=== PATIENT | male | born 1990 | race Caucasian/White ===

== ENCOUNTER 2017-08-21 17:44 | Emergency (ER) | payer OTHER ==
--- NOTE | 2017-08-21 17:57 | ER Document Report ---
ED Medical Screen (RME) - General Stated Complaint: RIGHT HAND INJURY Time Seen by Provider: 08/21/17 17:57 Mode of Arrival: Ambulatory Information source: Patient Notes: Patient states he cut his thumb with a table saw. He states he feels lightheaded and dizzy. He is also very thirsty.
[2017-08-21] MEDS ORDERED: DIPH/PERTUSS(ACELL)/TETANUS VAC/PF 0.5 ML SYR (>=10YO) IM ONE (18:24)
--- NOTE | 2017-08-21 18:42 | RADIOLOGY REPORT (SQ) ---
EXAM DESCRIPTION: HAND RIGHT 3 VIEWS COMPLETED DATE/TIME: 08/21/2017 6:33 pm REASON FOR STUDY: tablesaw injury/pain COMPARISON: None. EXAM PARAMETERS: NUMBER OF VIEWS: Three views. TECHNIQUE: AP, lateral and oblique radiographic images acquired of the right hand. LIMITATIONS: None. FINDINGS: MINERALIZATION: Normal. BONES: There is a knee comminuted fracture involving the tip of the 1st distal phalanx associated sof t tissue injury. JOINTS: No effusions. SOFT TISSUES: Soft tissues otherwise normal. No foreign body. OTHER: No other significant finding. IMPRESSION: OPEN FRACTURE INVOLVING THE TUFT OF THE DISTAL PHALANX 1ST DIGIT RIGHT HAND. TECHNICAL DOCUMENTATION: JOB ID: [id number] [employer])- All Rights Reserved
[2017-08-21] MEDS ORDERED: CEFAZOLIN INJ 1 GM VIAL IV ONE (18:45)
[2017-08-21] MEDS ORDERED: NORMAL SALINE 1000 ML 1,000 ML IV ONE (18:45)
--- NOTE | 2017-08-21 18:45 | ER Document Report ---
ED Hand/Wrist Injury - General Chief Complaint: Laceration Stated Complaint: RIGHT HAND INJURY Time Seen by Provider: 08/21/17 17:57 Mode of Arrival: Ambulatory Information source: Patient Notes: 6-year-old male presents to ED for thumb injury to his right thumb after he ran a table saw through the end of his thumb to include his fingernail and the pad of his thumb. He does have a comminuted fracture to the thumb tuft. He states he was building a dog crate when he accidentally cut his thumb. TRAVEL OUTSIDE OF THE [place] IN LAST 30 DAYS: No - HPI Injury to: Thumb Onset: Just prior to arrival Where: Home Timing: Still present Quality of pain: Sharp Severity: Moderate Pain Level: 3 Context: Laceration - Related Data Allergies/Adverse Reactions: No Known Allergies Allergy (Unverified 08/21/17 18:18) Past Medical History - General Information source: Patient - Social History Smoking Status: Never Smoker Cigarette use (# per day): No Chew tobacco use (# tins/day): No Smoking Education Provided: No Frequency of alcohol use: Occasional Drug Abuse: None Occupation: Active duty Lives with: Family Family History: Reviewed & Not Pertinent Patient has suicidal ideation: No Patient has homicidal ideation: No - Past Medical History Cardiac Medical History: Reports: None Pulmonary Medical History: Reports: None EENT Medical History: Reports: None Neurological Medical History: Reports: None Endocrine Medical History: Reports: None Renal/ Medical History: Reports: None Malignancy Medical History: Reports None GI Medical History: Reports: None Musculoskeltal Medical History: Reports Hx Musculoskeletal Deformity, Reports Hx Musculoskeletal Trauma - Right labrum tear Skin Medical History: Reports None Psychiatric Medical History: Reports: None Traumatic Medical History: Reports: None Infectious Medical History: Reports: None Past Surgical History: Reports: Hx Orthopedic Surgery - Labrum tear repair to the right shoulder - Immunizations Immunizations up to date: Yes Hx Diphtheria, Pertussis, Tetanus Vaccination: Yes Review of Systems - Review of Systems Constitutional: No symptoms reported EENT: No symptoms reported Cardiovascular: No symptoms reported Respiratory: No symptoms reported Gastrointestinal: No symptoms reported Genitourinary: No symptoms reported Male Genitourinary: No symptoms reported Musculoskeletal: Other Skin: Other - Laceration 3 cm down the thumb through the volar and dorsal aspects of the thumb and through the nail with a comminuted tuft fracture of the left thumb Hematologic/Lymphatic: No symptoms reported Neurological/Psychological: No symptoms reported -: Yes All other systems reviewed and negative Physical Exam - Vital signs Vitals: Temp Pulse Resp BP Pulse Ox 97.5 F 51 L 18 100/40 L 97 08/21/17 18:10 08/21/17 18:10 08/21/17 18:10 08/21/17 18:10 08/21/17 18:10 Interpretation: Normal - General General appearance: Appears well, Alert - HEENT Head: Normocephalic, Atraumatic Eyes: Normal Pupils: PERRL - Respiratory Respiratory status: No respiratory distress Chest status: Nontender Breath sounds: Normal Chest palpation: Normal - Cardiovascular Rhythm: Regular Heart sounds: Normal auscultation Murmur: No - Abdominal Inspection: Normal Distension: No distension Bowel sounds: Normal Tenderness: Nontender Organomegaly: No organomegaly - Back Back: Normal, Nontender - Extremities General upper extremity: Normal color, Normal temperature General lower extremity: Normal inspection, Nontender, Normal color, Normal ROM , Normal temperature, Normal weight bearing. No: Chong's sign Hand: Tender, Ecchymosis, Laceration - Laceration 3 cm down the thumb through the volar and dorsal aspects of the thumb and through the nail with a comminuted tuft fracture of the left thumb, Nail injury, No evidence of human bite, No evidence of FB - Neurological Neuro grossly intact: Yes Cognition: Normal Orientation: AAOx4 [place] Coma Scale Eye Opening: Spontaneous [place] Coma Scale Verbal: Oriented [place] Coma Scale Motor: Obeys Commands [place] Coma Scale Total: 15 Speech: Normal Motor strength normal: LUE, RUE, LLE, RLE Sensory: Normal - Psychological Associated symptoms: Normal affect, Normal mood - Skin Skin Temperature: Warm Skin Moisture: Dry Skin Color: Normal Skin irregularity: Laceration - Laceration 3 cm down the thumb through the volar and dorsal aspects of the thumb and through the nail with a comminuted tuft fracture of the left thumb Location of irregularity: Extremities Course - Re-evaluation Re-evalutation: 08/21/17 20:50 Dr. Cheema was consulted before the thumb was sutured. He came to the room and examined the patient. He recommended dissolvable sutures for the fingernail side and normal nylon sutures for the pad side of the thumb. He also recommended a splint. He recommended a gram of Ancef in the emergency room and discharged home on Keflex. His treatments were all ordered and carried out while he was in the emergency room. He was also given 2 mg of morphine IV before suturing his thumb. Patient tolerated procedures well he was instructed of the importance of following up with a hand surgeon as this is a open tuft fracture with the laceration through his nail and through the pad of his thumb. T the site was soaked in saline and Shur-Clens for about 20 minutes then it was cleaned well and irrigated with saline again before suturing. - Vital Signs Vital signs: Temp Pulse Resp BP Pulse Ox 97.5 F 76 16 129/69 H 99 08/21/17 18:10 08/21/17 20:27 08/21/17 20:27 08/21/17 20:27 08/21/17 20:27 - Diagnostic Test Radiology reviewed: Image reviewed, Reports reviewed Procedures - Laceration/Wound Repair Right Finger Thumb Time completed: 19:45 Wound length (cm): 3 - 3 cm linear laceration to the distal aspect of phalange, nail avulsed, extends dorsal to the volar aspect of distal phalanges Wound's Depth, Shape: Linear - Through volar and dorsal aspect through the nail , Other - Laceration to the fingernail Laceration pre-procedure: Sterile PPE donned, Sterile drapes applied, Shur- Clens applied Anesthetic type: 1% Lidocaine Volume Anesthetic (mLs): 7 - Digital block Wound explored: Contaminated - Chewed up skin due to table saw, comminuted open fracture right thumb tuft Irrigated w/ Saline (mLs): 500 Wound Repaired With: Sutures Suture Size/Type: Vicryl, 4:0, Ethilon Number of Sutures: 11 - 3 Velcro 8 Ethilon Layer Closure?: No Post-procedure wound care: Sterile dressing applied, Splint applied Post-procedure NV exam normal: Yes Complications: Yes - Comminuted open fracture of the right thumb laceration to the volar and ammy Discharge - Discharge Clinical Impression: Open fracture of distal phalanx of right thumb Qualifiers: Encounter type: initial encounter Fracture alignment: nondisplaced Qualified Code(s): S62.524B - Nondisplaced fracture of distal phalanx of right thumb, initial encounter for open fracture Condition: Stable Disposition: HOME, SELF-CARE Additional Instructions: Tuft Fracture of the Finger The tip of your finger is broken (beneath the finger nail). While painful , most tuft fractures are not serious but because yours is a open fracture it is very important that you follow-up with a orthopedic hand surgeon within the week.. You can expect the bone to heal within three to four weeks. Elevating and ice packing the finger will help greatly in reducing pain and swelling. You will probably need a protective splint, initially. When you can push firmly on the tip of your finger without any pain, you no longer need to use the splint. If the fingernail becomes black and painful, bleeding has occurred under the nail. This may need to be drained. Sometimes the nail must be removed. Occasionally, the tissue under the nail must be sewn back together. Call the doctor or return for examination if pain becomes severe, or if numbness or severe discoloration occurs. Hand Laceration A laceration on the hand can present special problems. It may be difficult to keep the wound dry. Motion of the fingers can disturb the healing edges. Your work may involve exposure to damaging chemicals or water. Keep the wound clean and dry. If you can't keep the cut dry, undisturbed, and free of chemical exposure, please discuss this with the doctor. If any water or chemical gets onto the dressing, remove it, blot the wound dry, then apply a fresh bandage. Dressings should be changed every day. If you feel the stitches pulling as you move the hand, a splint or other form of protection is needed. If any signs of infection occur (swelling, redness, increasing tenderness, red streaks, tender lumps in the armpit, or fever), see the doctor immediately. Elevate the Injury Because of the nature of your injury, elevation will be helpful to reduce swelling. This also reduces infection risk in wounds. Keep the injury up above the level of your heart for at least the next 48 hours (or longer if the physician recommends it). SOAP CLEANSING: Gently wash the wound daily using a mild soap (like Ivory, Phisoderm, Neutrogena). Use warm water, rubbing gently until all debris, ooze, and crusting have been washed from the wound. Allow to dry briefly (about 10 minutes) after cleaning. Repeat this cleansing at least three times a day for the first two days and then once or twice a day. ANTIBIOTIC OINTMENT PROTECTION: Your wounds are such that dressing them is not practical or optional. After cleansing, you should apply a thin coating of antibiotic ointment ( Bacitracin, not Neosporin) to the wounds at least three times daily. This lessens infection risk, and may decrease the amount of scarring. Use a q-tip or dull butter knife, not your finger, to apply this ointment. Any debris or ooze which builds up in the ointment should be gently rubbed off with a sterile gauze pad. Harder crusting may need to be gently scrubbed off with a clean wash cloth with soap and warm water, perhaps applying a warm, wet wash cloth to the wound for ten minutes first. Development of redness, severe itching, or blistering may mean allergy to the ointment. See the doctor. TETANUS IMMUNIZATION GIVEN: You have been given an immunization against tetanus. Please record this in your records. In general, a booster is needed only once every 10 years. The tetanus shot protects against tetanus or "lockjaw," which is a complication of certain wound infections (the tetanus shot cannot protect against the actual infection). The immunization site may become warm and red due to local reaction. If this occurs, apply warm compresses and take aspirin or ibuprofen to reduce inflammation and discomfort. Return for evaluation if the reaction becomes severe. PROPHYLACTIC ANTIBIOTIC: The antibiotics which have been prescribed are designed to decrease the risk of infection. Only certain types of wounds benefit from this -- the typical cut, scrape, or burn DOES NOT require antibiotics. Of course, infection can still occur despite the use of prophylactic antibiotics. Your wound will heal with less chance of an infectious complication if you take the medication as directed. The most important dose is the FIRST dose, so don't delay filling the prescription! ORAL NARCOTIC MEDICATION: You have been given a prescription for pain control. This medication is a narcotic. It's best taken with food, as nausea can result if taken on an empty stomach. Don't operate machinery or drive within six hours of taking this medication. Do not combine this medicine with alcohol, or with any medication which can cause sedation (such as cold tablets or sleeping pills) unless you get permission from the physician. Narcotics tend to cause constipation. If possible, drink plenty of fluids and eat a diet high in fiber and fruits. Splint Precautions A splint has been placed. This will protect the area while healing begins. Your problem does NOT normally require a cast. It MUST, however, be held still! Keep the splint on ALL THE TIME until instructed to remove it by the doctor. As you begin to use the area, be careful. You shouldn't do anything which causes discomfort -- you may disturb the injury even with the splint in place. After the initial period of rest and elevation, if splint does not prevent pain when you move, come back. You may require placement of a different splint , or a cast. If there is unexpected severe pain, or numbness, discoloration, or swelling beyond the splint, you should return at once. If you feel that the splint has broken or become loose, come back. FOLLOW-UP CARE: Very very important you follow-up with orthopedic hand surgeon [place] of the one that I have given you the one that came to see you in the emergency room. Please return in __2___ days for an infection check and dressing change. Your sutures should be removed in __8___ days. To facilitate a timely removal of your sutures, you may return to the Emergency Department at [facility]. You do not need to call for an appointment, but the best time to come in for suture removal is early in the morning. If you have been referred to another physician for follow-up care, call that physicians office for an appointment as you were instructed. If you experience a significant change in your laceration, or if you are concerned there may be an infection (swelling, redness, drainage, increasing tenderness, red streaks, tender lumps in the armpit or groin above the laceration, or fever) , return to the Emergency Department immediately re-evaluation. Prescriptions: Oxycodone HCl/Acetaminophen [Percocet 5-325 mg Tablet] 1 tab PO Q6HP PRN #15 tablet PRN Reason: Cephalexin Monohydrate [Keflex 500 mg Capsule] 500 mg PO Q6H 10 Days capsule Forms: Return to Work Referrals: SALLIE CHEEMA, [ACTIVE STAFF] - Follow up as needed
[2017-08-21] MEDS ORDERED: LIDOCAINE 1% INJ-PF (10 MG/ML) 30 ML SDV INJ ONE (18:59)
[2017-08-21] MEDS ORDERED: LIDOCAINE 1% INJ-PF (10 MG/ML) 30 ML SDV ONE (19:00)
[2017-08-21] MEDS ORDERED: MORPHINE SULFATE 10 MG/ML INJ IV ONE (19:22)
--- NOTE | 2017-08-21 19:48 | PDOC CONSULTATION ---
History of Present Illness Patient complains of: Right finger laceration History of Present Illness: PRISCILA MENDEZ is a 26 year old male who inadvertently cut his right thumb while using a table saw. Patient had notable bleeding at the time of injury was brought to the emergency room. While in the emergency room patient received tetanus and IV antibiotics. The wound has been irrigating and saline. Does have some numbness in the tip of the finger. Current pain 5/10. Worse with motion of the digit. Past Medical History Cardiac Medical History: Reports: None Pulmonary Medical History: Reports: None EENT Medical History: Reports: None Neurological Medical History: Reports: None Endocrine Medical History: Reports: None Renal/ Medical History: Reports: None Malignancy Medical History: Reports: None GI Medical History: Reports: None Skin Medical History: Reports: None Psychiatric Medical History: Reports: None Traumatic Medical History: Reports: None Infectious Medical History: Reports: None Past Surgical History Past Surgical History: Reports: Orthopedic Surgery - Labrum tear repair to the right shoulder Social History Smoking Status: Never Smoker Family History Family History: Reviewed & Not Pertinent Parental Family History Reviewed: No Children Family History Reviewed: No Sibling(s) Family History Reviewed.: No Medication/Allergy Allergies/Adverse Reactions: No Known Allergies Allergy (Unverified 08/21/17 18:18) Review of Systems Constitutional: ABSENT: chills, fever(s), headache(s), weight gain, weight loss Eyes: ABSENT: visual disturbances Ears: ABSENT: hearing changes Cardiovascular: ABSENT: chest pain, dyspnea on exertion, edema, orthropnea, palpitations Respiratory: ABSENT: cough, hemoptysis Gastrointestinal: ABSENT: abdominal pain, constipation, diarrhea, hematemesis, hematochezia, nausea, vomiting Genitourinary: ABSENT: dysuria, hematuria Musculoskeletal: PRESENT: as per HPI Integumentary: ABSENT: rash, wounds Neurological: ABSENT: abnormal gait, abnormal speech, confusion, dizziness, focal weakness, syncope Psychiatric: ABSENT: anxiety, depression, homidical ideation, suicidal ideation Endocrine: ABSENT: cold intolerance, heat intolerance, menstrual abnormalities, polydipsia, polyuria Hematologic/Lymphatic: ABSENT: easy bleeding, easy bruising, lymphadenopathy Physical Exam General appearance: PRESENT: no acute distress, well-developed, well-nourished Head exam: PRESENT: atraumatic, normocephalic Eye exam: PRESENT: conjunctiva pink, EOMI, PERRLA. ABSENT: scleral icterus Ear exam: PRESENT: normal external ear exam Mouth exam: PRESENT: moist, tongue midline Neck exam: PRESENT: full ROM. ABSENT: carotid bruit, JVD, lymphadenopathy, thyromegaly Respiratory exam: PRESENT: unlabored Cardiovascular exam: ABSENT: diastolic murmur, rubs, systolic murmur Pulses: PRESENT: normal radial pulses Vascular exam: PRESENT: normal capillary refill GI/Abdominal exam: PRESENT: normal bowel sounds, soft. ABSENT: distended, guarding, mass, organolmegaly, rebound, tenderness Rectal exam: PRESENT: deferred Musculoskeletal exam: PRESENT: other - Right thumb: Longitudinal laceration from the distal tip that extends to the midportion of the sterile matrix. No definitive exposed bone appreciated. Bleeding from the wound site. Patient had altered sensation distally. Intact FPL/EPL. Cap refill less than 2 seconds with normal skin turgor. Neurological exam: PRESENT: alert, awake, oriented to person, oriented to place , oriented to time, oriented to situation, CN II-XII grossly intact. ABSENT: motor sensory deficit Psychiatric exam: PRESENT: appropriate affect, normal mood. ABSENT: homicidal ideation, suicidal ideation Skin exam: PRESENT: dry, intact, warm. ABSENT: cyanosis, rash Results Impressions: Hand X-Ray 08/21/17 18:24 IMPRESSION: OPEN FRACTURE INVOLVING THE TUFT OF THE DISTAL PHALANX 1ST DIGIT RIGHT HAND. Status: Image reviewed by me - I have reviewed patient's radiographs demonstrate tuft fracture of the distal phalanx Assessment & Plan - Diagnosis (1) Open fracture of distal phalanx of right thumb Qualifiers: Encounter type: initial encounter Fracture alignment: nondisplaced Qualified Code(s): S62.524B - Nondisplaced fracture of distal phalanx of right thumb, initial encounter for open fracture Is this a current diagnosis for this admission?: Yes Plan: Patient sustained a table saw injury to his right thumb. At this point there is adequate soft tissue for closure no evidence of soft tissue compromise. Patient may develop future nail deformity at this point I have recommended irrigation of the thumb with loose closure. Patient will follow-up with me as an outpatient. He will be discharged home on Keflex.
[2017-08-21] MEDS ORDERED: CEFAZOLIN 1 GM/D5W RTU 1 GM/50 ML RTUPB IV ONE (20:00)
[2017-08-21 20:28] VITALS: BP 129/69
== END 2017-08-21 20:42 | disposition home or self-care (01) ==
LOC: ER 17:44
DX: S62.524B Nondisplaced fracture of distal phalanx of right thumb, initial encounter for open fracture (principal); W29.8XXA Contact with other powered hand tools and household machinery, initial encounter; Y93.89 Activity, other specified; Y92.009 Unspecified place in unspecified non-institutional (private) residence as the place of occurrence of the external cause
CPT/HCPCS: 99284; 96375; 96365; 73130; 12002; J0690; J3490; J2270

== ENCOUNTER 2017-09-03 12:43 | Emergency (ER) | payer OTHER ==
[2017-09-03 12:47] VITALS: BP 126/78
--- NOTE | 2017-09-03 13:26 | ER Document Report ---
HPI - HPI Pain Level: 1 Notes: Patient is a 26-year-old male with a history of a recent laceration to the right distal thumb about 2 weeks ago. Patient was evaluated by orthopedics who did a loose suture reapproximation of the wound edges. Patient states that he has been doing wound dressings as directed and have the stitches taken out the other day. Patient states that he had it wrapped up and then he stubbed his thumb causing the wound to reopen. Patient states that he is still on antibiotics. He has no other concerns or complaints. Patient states the bleeding has been controlled. Denies any drug allergies. No other concerns or complaints. Denies any headache, fever, URI, sore throat, chest pain, palpitations, syncope, cough, shortness of breath, wheeze, dyspnea, abdominal pain, nausea/vomiting/diarrhea, urinary retention, dysuria, hematuria, numbness/ tingling, muscle paralysis/weakness, or rash. - ROS Systems Reviewed and Negative: Yes All other systems reviewed and negative Past Medical History - Social History Smoking Status: Unknown if Ever Smoked Family History: Reviewed & Not Pertinent Renal/ Medical History: Denies: Hx Peritoneal Dialysis Musculoskeltal Medical History: Reports Hx Musculoskeletal Deformity, Reports Hx Musculoskeletal Trauma - Right labrum tear Past Surgical History: Reports: Hx Orthopedic Surgery - Labrum tear repair to the right shoulder - Immunizations Immunizations up to date: Yes Hx Diphtheria, Pertussis, Tetanus Vaccination: Yes Vertical Provider Document - CONSTITUTIONAL Agree With Documented VS: Yes Notes: PHYSICAL EXAMINATION: GENERAL: Well-appearing, well-nourished and in no acute distress. LUNGS: Breath sounds clear to auscultation bilaterally and equal. No wheezes rales or rhonchi. HEART: Regular rate and rhythm without murmurs, rubs, gallops. Musculoskeletal: Rt thumb: FROM to passive/active. Strength 5+/5. N/V intact. Non-tender. Extremities: No cyanosis, clubbing, or edema b/l. Peripheral pulses 2+. Capillary refill less than 3 seconds. NEUROLOGICAL: Cranial nerves grossly intact. Normal speech, normal gait. Normal sensory, motor exams PSYCH: Normal mood, normal affect. SKIN: rt thumb: There is a superficial wound dehiscence noted to the old laceration. No active bleeding. No purulence, abscess, or streaks. - INFECTION CONTROL TRAVEL OUTSIDE OF THE [place] IN LAST 30 DAYS: No - RESPIRATORY O2 Sat by Pulse Oximetry: 98 Course - Re-evaluation Re-evalutation: 09/03/17 13:22 Patient is an afebrile, well-hydrated, 26-year-old male who presents to the ED with wound dehiscence of his right thumb laceration. Vitals are stable. PE is otherwise unremarkable for any neurovascular compress, obvious tendon/ligament rupture, obvious fracture/dislocation, sepsis, or infection at this time. Wound was thoroughly irrigated and cleansed. Wound dressing was placed. Advised patient that he will need to allow this wound to heal by secondary intent and that the actual wound itself is very superficial at this time. Conservative measures for symptoms otherwise. Recheck with your PCM in 3-5 days. Consider consult with orthopedics. Return to the ED with any worsening/ concerning symptoms otherwise as reviewed discharge. Patient is in agreement. - Vital Signs Vital signs: Temp Pulse Resp BP Pulse Ox 97.7 F 62 20 126/78 H 98 09/03/17 12:46 09/03/17 12:46 09/03/17 12:46 09/03/17 12:46 09/03/17 12:46 Discharge - Discharge Clinical Impression: Wound dehiscence Condition: Stable Disposition: HOME, SELF-CARE Additional Instructions: Keep the skin clean Wash with soap and water Tylenol/ibuprofen if needed Triple antibiotic ointment daily for a few days until no longer draining, then may leave open to the air Take medication as directed Monitor for any worsening symptoms Recheck with your PCM in 3-5 days Consider consult with Ortho for ongoing/worsening symptoms Return to the ED with any worsening symptoms and/or development of fever, headache, chest pain, palpitations, syncope, shortness of breath, trouble breathing, abdominal pain, n/v/d, abscess, purulent discharge, red streaks, worsening swelling, or other worsening symptoms that are concerning to you. Forms: Elevated Blood Pressure Referrals: DAMARIS HERRERA MD [Primary Care Provider] - Follow up as needed SALLIE CHEEMA DO [ACTIVE STAFF] - Follow up as needed
== END 2017-09-03 13:41 | disposition home or self-care (01) ==
LOC: ER 12:43
DX: T81.33XA Disruption of traumatic injury wound repair, initial encounter (principal); S61.011D Laceration without foreign body of right thumb without damage to nail, subsequent encounter; X58.XXXD Exposure to other specified factors, subsequent encounter
CPT/HCPCS: 99282